=== PATIENT | male | born 1950 | race Caucasian/White ===

== ENCOUNTER 2021-08-12 09:25 | Outpatient (CLI) | payer BC, MEDICARE, SELFPAY ==
[2021-08-12 12:57] LABS: ALT 36 U/L (16-63); AST 18 U/L (15-37); Albumin 3.3 g/dL (3.4-5.0); Alkaline Phosphatase 109 U/L (46-116); Anion Gap 4.8 mmol/L (3-11); BUN 10 mg/dL (7-18); Bilirubin, Total 0.3 mg/dL (0.2-1.0); CO2 34.2 mmol/L (21.0-32.0); CREATININE 0.8 mg/dL (0.70-1.30); Calcium 8.5 mg/dL (8.5-10.1); Calculated LDL 79 mg/dL (<100); Chloride 97 mmol/L (98-107); Cholesterol 132 mg/dL (<200); Glucose 94 mg/dL (74-106); HDL Cholesterol 40 mg/dL (40-60); Potassium 4.6 mmol/L (3.5-5.1); Sodium 136 mmol/L (136-145); TSH (W/Ref FT4) 2.57 uIU/mL (0.36-3.74); Total Protein 6.8 g/dL (6.4-8.2); Triglyceride 66 mg/dL (<150)
[2021-08-12 13:15] LABS: NT-proBNP 2506 pg/mL (<300)
== END 2021-08-12 09:26 | disposition home or self-care (01) ==
LOC: LOS 09:26
PROVIDERS: PCP Family Medicine; Referring Provider Family Medicine; Visit Provider Family Medicine
DX: I10 Essential (primary) hypertension; I50.9 Heart failure, unspecified; I48.91 Unspecified atrial fibrillation
CPT/HCPCS: 36415; 80053; 80061; 83880; 84443

== ENCOUNTER 2021-09-09 03:24 | Outpatient (CLI) | payer BC, MEDICARE, SELFPAY ==
[2021-09-09 12:42] LABS: ALT 27 U/L (16-63); AST 14 U/L (15-37); Albumin 3.7 g/dL (3.4-5.0); Alkaline Phosphatase 98 U/L (46-116); Anion Gap 5.4 mmol/L (3-11); BUN 13 mg/dL (7-18); Bilirubin, Total 0.4 mg/dL (0.2-1.0); CO2 33.6 mmol/L (21.0-32.0); CREATININE 0.8 mg/dL (0.70-1.30); Calcium 8.6 mg/dL (8.5-10.1); Chloride 98 mmol/L (98-107); Glucose 144 mg/dL (74-106); NT-proBNP 1180 pg/mL (<300); Sodium 137 mmol/L (136-145); Total Protein 7.4 g/dL (6.4-8.2)
== END 2021-09-09 03:25 | disposition home or self-care (01) ==
LOC: LOS 03:24
PROVIDERS: PCP Family Medicine; Visit Provider Family Medicine
DX: I10 Essential (primary) hypertension (principal); I50.9 Heart failure, unspecified
CPT/HCPCS: 36415; 80053; 83880

== ENCOUNTER 2021-10-25 03:50 | Outpatient (CLI) | payer BC, MEDICARE, SELFPAY ==
[2021-10-25 10:27] LABS: Source Nasal/Nares
[2021-10-25 13:23] LABS: COVID-19 PCR Negative (Negative)
== END 2021-10-25 03:51 | disposition home or self-care (01) ==
LOC: LBO 03:50
PROVIDERS: PCP Family Medicine; Visit Provider Ophthalmology
DX: Z20.822 Contact with and (suspected) exposure to COVID-19 (principal); Z01.818 Encounter for other preprocedural examination
CPT/HCPCS: 87635

== ENCOUNTER 2021-10-28 07:01 | Day surgery (SDC) | payer BC, MEDICARE, SELFPAY ==
[2021-10-28 07:30] VITALS: BP 136/69; PULSE 85; RESP 20; TEMP 36.6; O2SAT 97
[2021-10-28] MEDS: Tropicam./Phenyleph. (1/2.5%) 5 ML BTL OD ×3 (07:40→07:50)
--- NOTE | 2021-10-28 08:02 | W.ANESPRE ---
General Info Date of Service Date Performed: 10/28/21 Height: 5 ft 9 in Weight: 88.451 kg Body Mass Index (BMI): 28.8 Surgical Procedure: Operation Date: 10/28/21 08:40 Proposed Procedures Side Surgeon p Cataract Extraction with IOL Implant Right Efraín Murphy MD Meds Allergies and Home Medications Allergies Allergy/AdvReac Type Severity Reaction Status Date / Time No Known Allergies Allergy Verified 10/28/21 07:26 Home Medication Medication Instructions Recorded diltiazem HCl 180 mg 180 mg PO DAILY #90 cap 08/12/21 capsule,extended release 24 hr, controlled apixaban 5 mg tablet 5 mg PO BID #180 tab 08/26/21 torsemide 20 mg tablet 40 mg PO DAILY #1 tab 08/26/21 potassium chloride 10 mEq 20 meq PO DAILY #60 tab 09/02/21 tablet,extended release multivitamin [Multiple Vitamin] 1 tab PO DAILY 10/28/21 Current Visit Medications: Current Medications Generic Name Dose Route Start Last Admin Trade Name Freq PRN Reason Stop Dose Admin Acetaminophen 1,000 mg 10/28/21 06:00 Acetaminophen 500 Mg Tab PO Q4H PRN PRN Miscellaneous Medication 0 ml 10/28/21 06:00 Prednisolone 1%, Moxifloxacin 0.5%, Nepafenac 0.1% 5ml Btl OD DIRECTED [facility] Miscellaneous Medication 0 ml 10/28/21 06:00 10/28/21 07:50 Tropicam./Phenyleph. (1/2.5%) 5 Ml Btl OD 1 drp DIRECTED JOSELINE Administration Tetracaine HCl 0 ml 10/28/21 06:00 Tetracaine 0.5% 4 Ml Btl OD DIRECTED [facility] PFSH Active Problems Active Problems: Problem Status Onset Code Health maintenance alteration Z78.9 Skin ulcer L98.499 Pleural effusion J90 Alcohol abuse F10.10 Personal history of nicotine dependence Z87.891 Stasis dermatitis I87.2 Aortic stenosis I35.0 CHF (congestive heart failure) I50.9 Atrial fibrillation I48.91 Tobacco Smoking/Tobacco Use Status: Current every day Tobacco Type: cigarettes Tobacco: How many years used: 58 Passive smoking exposure: Yes Quit Status: considering quitting Second hand exposure: Yes Alcohol Alcohol Intake: current Alcohol intake frequency: 0-2 drinks per day Alcohol type: beer Substance Use Substance use: Never Substance use type: does not use Vital Signs and Lab Results Vital Signs Most Recent Vital Signs in EMR: Most Recent Vital Signs Temp Pulse Resp BP Pulse Ox 36.6 C 85 20 136/69 97 10/28/21 07:30 10/28/21 07:30 10/28/21 07:30 10/28/21 07:30 10/28/21 07:30 Lab Results Blood Type / Crossmatch: No Data to Display Complete Blood Count: No Data to Display Complete Metabolic Panel: No Data to Display Liver Function Panel: No Data to Display Coagulation Panel: No Data to Display Cardiac Panel: No Data to Display Arterial Blood Gas: No Data to Display Venous Blood Gas: No Data to Display Pancreas Panel: No Data to Display Thyroid Panel: No Data to Display Infectious Disease: Coronavirus (COVID-19)(PCR) Negative (Negative) 10/25/21 08:48 10/25/21 Coronavirus 2019 Source Nasal/Nares 10/25/21 08:48 10/25/21 Blood Cultures: No Data to Display Toxicology Panel: No Data to Display Anesthesia Assessment and Plan Anesthesia History Personal History: No History of Anesthesia Complications Family History: No Family History of Anesthesia Complications Exercise Tolerance Exercise Tolerance: Metabolic Equivalents>4 Pertinent Negatives Pertinent Negatives: No Symptoms of GERD, No Major Cardiovascular Symptoms or Complaints, No Major Pulmonary Symptoms or Complaints and No History of CVA/TIA Cardiac & Pulmonary Exam Cardiac Exam: Normal S1/S2 Heart Sounds Pulmonary Exam: Clear Bilateral Breath Sounds Implantable Cardiac Device Does patient have a Pacemaker or an ICD?: No Airway Exam Known Difficult Airway: No Mallampati Class: 1 Mouth Opening: Normal (> 3cm) Thyromental Distance: Greater than 3 cm Neck Range of Motion: Full ROM Neck Circumference: Normal Teeth Condition: Normal Dentition ASA Classification ASA Score: ASA 2 Emergency Case?: No NPO Status NPO Status: NPO Clears >2 hours, Solids >8 hours Anesthesia Plan Resuscitation Status: Full Code Anesthesia Technique: MAC Anesthesia Airway Planned: Natural Airway Monitors Used: Standard Monitors
[2021-10-28 08:05] VITALS: BMI 28.8
[2021-10-28] MEDS: Balanced Salt Soln.-PLUS 500 ML BAG (08:24)
[2021-10-28] MEDS: Tetracaine 0.5% 4 ML BTL OD (08:24)
[2021-10-28] MEDS: Duovisc Viscoelastic System EACH 1 EACH (08:25)
[2021-10-28] MEDS: Lidocaine 2% Jelly 6 ML SYR (08:25)
[2021-10-28] MEDS: Povidone-Iodine Ophth 30 ML BTL (08:26)
[2021-10-28] MEDS: Triamcinolone 40 MG/ML VIAL (08:28)
--- NOTE | 2021-10-28 08:48 | W.ANESPOSTOP ---
Postoperative Evaluation Date, Time and Location Date Performed: 10/28/21 Time Performed: 08:49 Patient Location: Day Surgery Unit Vital Signs Most Recent Imported Vital Signs: Most Recent Vital Signs Temp Pulse Resp BP Pulse Ox 36.6 C 85 20 136/69 97 10/28/21 07:30 10/28/21 07:30 10/28/21 07:30 10/28/21 07:30 10/28/21 07:30 Most Recent Manually Entered Vital Signs: Adult Blood Pressure: 132/45 Heart Rate: 61 Respirations: 12 Oxygen Saturation (%): 97 Temperature (C): 36.3 C Pain Score (0-10 Scale): 0 Pain Score Most Recent Pain Score: Most Recent Pain Score Pain Level 0 10/28/21 07:30 Assessment Mental Status: Awake (Alert & Oriented to Patient Baseline) Airway and Respiratory Function: Patent airway with normal (patient baseline) respiratory exam Cardiovascular Function: Hemodynamically Stable Hydration Status: Adequately Hydrated Nausea & Vomiting: No Nausea or Vomiting Pain: Pt. Denies Any Pain Peripheral Nerve Block: Patient did not receive a nerve block
[2021-10-28 08:49] VITALS: BP 132/45; PULSE 80; RESP 18; TEMP 36.6; O2SAT 97
--- NOTE | 2021-10-28 08:49 | W.PM.DSUDISC ---
Discharge Plan Disposition Patient Disposition: HOME Condition: Good Discharge Details Attending Provider: Efraín Murphy Primary Care Provider: Cesario Jordan Home Meds and New Rx's Prescriptions: No Action torsemide 20 mg tablet 40 mg PO DAILY Qty: 1 RF: 0 Eliquis 5 mg tablet 5 mg PO BID Qty: 180 RF: 3 diltiazem HCl [DILT-XR] 180 mg capsule,ext.rel 24h degradable 180 mg PO DAILY Qty: 90 RF: 3 potassium chloride 10 mEq tablet extended release 20 meq PO DAILY Qty: 60 RF: 2 multivitamin [Multiple Vitamin] Tablet 1 tab PO DAILY RF: 0 Discharge Instructions Stand Alone Forms: Post-op Topical Cataract, Jose Eduardo Sanabria ([facility]) Discharge Orders Discharge Orders: Discharge Order (Routine); Ordered 10/28/21 Ordered By: Efraín Murphy DS: Diagnosis Discharge Diagnosis (1) Cortical cataract of right eye: Status: Resolved (2) Nuclear sclerotic cataract of right eye: Status: Resolved (3) Posterior subcapsular age-related cataract, right eye: Status: Resolved
[2021-10-28 08:50] VITALS: BP 132/45; PULSE 61; RESP 12; TEMPC 36.3; O2SAT 97
--- NOTE | 2021-10-28 08:53 | W.PM.OP ---
Date of service: 10/28/21 Time of Service: 08:53 Operative Note Operative Note DATE OF PROCEDURE: 10/28/21 PRE-OP DIAGNOSIS: Nuclear/cortical/posterior subcapsular cataract, right eye Epiretinal membrane, right eye POST-OP DIAGNOSIS: same PROCEDURE: Cataract extraction using phacoemulsification with intraocular lens implant, right eye SURGEON: Efraín Murphy ANESTHESIA TYPE: Local By Surgeon and MAC Refer to Anesthesia Record ESTIMATED BLOOD LOSS: 0 PATHOLOGY: none sent COMPLICATIONS: None Patient was transported to: same day Patient's condition: stable Implants: Marc & Marc/SIOBHAN Tecnis [id number] Indications: Progressive visual loss due to cataract, right eye Procedure Description: CATARACT SURGERY OPERATIVE REPORT PREOPERATIVE DIAGNOSIS: 1. Nuclear/cortical/posterior subcapsular cataract, right eye 2. Epiretinal membrane, right eye POSTOPERATIVE DIAGNOSIS: Same OPERATION: 1. Cataract extraction using phacoemulsification with posterior chamber intraocular lens implant, right eye. IOL: IOL Lead Electrical Engineer/Model: Marc & Marc / SIOBHAN Tecnis [id number] IOL Power: + 22.0 diopters IOL Serial Number: [id number] Optic Diameter: 6.0mm Haptic/Overall Diameter: 13.0mm PHACO INFO: Cricket Centurion Vision System with OZil and Active Fluidics Cumulative Dispersed Energy (CDE): 5.61 seconds SURGEON: Efraín Murphy MD, TATO ANESTHESIA: Monitored [facility] (MAC), with local sub-tenon's anesthetic infiltration COMPLICATIONS: None SPECIMENS: None INDICATIONS FOR PROCEDURE: The patient is a 71-year-old gentleman with history of diminished visual acuity in his right eye. He is noted to have a nuclear/cortical/posterior subcapsular cataract. In addition, he has an epiretinal membrane of the right eye. The option of cataract surgery was offered to the patient and he wished to proceed, understanding that postoperative visual acuity will be limited by the presence of pre-existing maculopathy. PROCEDURE: The correct surgical eye was identified and marked as the right eye and the pupil was dilated in the preoperative area using mydriatics and cycloplegics. The dilated pupil size was 6.0 mm. He elected to proceed without oral sedation. The patient was brought to the operating room where cardiopulmonary monitoring was instituted and surgical time-out was performed, confirming the correct operative eye and IOL power. Topical anesthesia was administered and ophthalmic povidone-iodine 5% was instilled into the conjunctival fornices. Lidocaine gel was applied to the cornea and the chuyita-ocular area was prepped with Betadine 10% solution and draped in the usual sterile fashion for intraocular surgery, including an aperture drape. A Tegaderm transparent film dressing was cut in half and used to cover the lashes and lid margins. Care was taken to sequester the lashes and lid margins under the Tegaderm dressing. A lid speculum was placed between the lids of the operative eye and the Yahaira-Roshan operating microscope was maneuvered into position. Juan M scissors were then used to make a conjunctival buttonhole approximately 6mm posterior to the limbus in the inferonasal quadrant. Blunt dissection was carried out to expose bare sclera, and a blunt-tipped sub-tenon?s anesthesia cannula was introduced and passed posteriorly along the globe where non-preserved plain lidocaine was injected into posterior sub-Tenon?s space. A sideport knife was used to make a paracentesis port inferotemporally. Intraocular phenylephrine/lidocaine was injected into the anterior chamber. The anterior chamber was filled with viscoelastic. A 2.4mm keratome knife was used to create a half-thickness groove at the limbus and then to construct a three-plane near-clear corneal tunnel extending 2.0mm into clear cornea superiortemporally. A flap was raised on the anterior capsule and capsulorhexis forceps were used to continue a capsulorrhexis, starting clockwise from the 10 o'clock position. While completing the capsulorrhexis at approximately the 1 o'clock position, the patient suddenly moved to his left, causing the capsulorrhexis to come back centrally. Additional viscoelastic was placed in the anterior chamber. The capsulorrhexis was continued, extending it more peripherally towards the 4 o'clock position and then completing the capsulorrhexis. The capsulorrhexis was a kidney sanchez shape, the anterior capsular rim extending centrally at the 3 o'clock position. Balanced salt solution was then used to perform cortical cleaving hydrodissection and nuclear hydrodelineation until the lens could be freely rotated within the capsular bag. The lens nucleus was then disassembled and removed within the capsular bag and iris plane using phacoemulsification. Residual cortical material was removed using the I/A handpiece. The posterior capsule was carefully polished to remove as much residual lens epithelial cells as safely possible. The capsular bag was then inflated and the anterior chamber deepened with viscoelastic. The lens implant described above was inserted into the capsular bag using the SIOBHAN [employer] Injector. A Kuglen hook was used to dial the IOL into position. Consideration was given to enlarging the capsulorrhexis, but it did not appear that the nasal portion of the anterior capsular leaflet would impinge on the visual axis through an undilated pupil. If so, laser relaxing incisions could also be made. Residual viscoelastic was then removed first from posterior to the IOL, then from the anterior chamber using the I/A handpiece. The lens implant was noted to center nicely within the capsular bag. The incisions were stromally hydrated, and the anterior chamber was reformed using BSS. Then 0.5cc of moxifloxacin 1.0mg/ml were injected into the capsular bag and anterior chamber. The incisions were checked with a Weck spear and found to be secure. At the conclusion of the procedure, Kenalog 20 mg in 0.5 cc were injected into posterior sub-tenon's space using the sub-tenon's anesthesia injection cannula. Several drops of ophthalmic povidone-iodine 5% were then applied to the eye followed by two drops of Imprimis combination prednisolone/moxifloxacin/nepafenac solution. The drapes were removed and a clear plastic protective eye shield was placed over the eye. The patient was then returned to Same Day Surgery in stable condition.
== END 2021-10-28 09:26 | disposition home or self-care (01) ==
PROVIDERS: PCP Family Medicine; Visit Provider Ophthalmology
PROC: (CPT 66984; principal; 2021-10-28 08:30)
DX: H25.041 Posterior subcapsular polar age-related cataract, right eye (principal); I50.9 Heart failure, unspecified; F17.210 Nicotine dependence, cigarettes, uncomplicated
CPT/HCPCS: 66984; V2632

== ENCOUNTER 2021-11-08 04:12 | Outpatient (CLI) | payer BC, MEDICARE, SELFPAY ==
[2021-11-08 11:57] LABS: Source Nasal/Nares
[2021-11-08 17:46] LABS: COVID-19 PCR Negative (Negative)
== END 2021-11-08 04:13 | disposition home or self-care (01) ==
PROVIDERS: PCP Family Medicine; Visit Provider Ophthalmology
DX: Z20.822 Contact with and (suspected) exposure to COVID-19 (principal)
CPT/HCPCS: 87635

== ENCOUNTER 2021-11-11 06:23 | Day surgery (SDC) | payer BC, MEDICARE, SELFPAY ==
[2021-11-11 06:31] VITALS: BP 141/69; PULSE 86; RESP 18; TEMP 36.1; O2SAT 96
[2021-11-11] MEDS: Tropicam./Phenyleph. (1/2.5%) 5 ML BTL OS ×3 (06:45→07:02)
--- NOTE | 2021-11-11 07:03 | ANES.PREOP_ITS ---
General Info Date of Service Date Performed: 11/11/21 Height: 5 ft 9 in Weight: 86.6 kg Body Mass Index (BMI): 28.2 Surgical Procedure: Operation Date: 11/11/21 07:40 Proposed Procedures Side Surgeon p Cataract Extraction with IOL Implant Left Efraín Murphy MD Meds Allergies and Home Medications Allergies Allergy/AdvReac Type Severity Reaction Status Date / Time No Known Allergies Allergy Verified 11/11/21 06:40 Home Medication Medication Instructions Recorded diltiazem HCl 180 mg 180 mg PO DAILY #90 cap 08/12/21 capsule,extended release 24 hr, controlled apixaban 5 mg tablet 5 mg PO BID #180 tab 08/26/21 torsemide 20 mg tablet 40 mg PO DAILY #1 tab 08/26/21 potassium chloride 10 mEq 20 meq PO DAILY #60 tab 09/02/21 tablet,extended release multivitamin [Multiple Vitamin] 1 tab PO DAILY 10/28/21 Current Visit Medications: Current Medications Generic Name Dose Route Start Last Admin Trade Name Freq PRN Reason Stop Dose Admin Acetaminophen 1,000 mg 11/11/21 06:00 Acetaminophen 500 Mg Tab PO Q4H PRN PRN Miscellaneous Medication 0 ml 11/11/21 06:00 Prednisolone 1%, Moxifloxacin 0.5%, Nepafenac 0.1% 5ml Btl OS DIRECTED [facility] Miscellaneous Medication 0 ml 11/11/21 06:00 11/11/21 07:02 Tropicam./Phenyleph. (1/2.5%) 5 Ml Btl OS 1 drp DIRECTED JOSELINE Administration Tetracaine HCl 0 ml 11/11/21 06:00 Tetracaine 0.5% 4 Ml Btl OS DIRECTED JOSELINE PFSH Active Problems Active Problems: Problem Status Onset Code Atrial fibrillation I48.91 CHF (congestive heart failure) I50.9 Aortic stenosis I35.0 Stasis dermatitis I87.2 Personal history of nicotine dependence Z87.891 Alcohol abuse F10.10 Pleural effusion J90 Skin ulcer L98.499 Health maintenance alteration Z78.9 Cortical cataract of right eye H26.9 Nuclear sclerotic cataract of right eye H25.11 Posterior subcapsular age-related cataract, right eye H25.041 Medical History Medical History Comments:: Smokers cough Surgical History Surgical History History of cataract surgery Tobacco Smoking/Tobacco Use Status: Current every day Tobacco Type: cigarettes Smoking cigarettes per day: 30 Tobacco: How many years used: 58 Passive smoking exposure: Yes Quit Status: considering quitting Second hand exposure: Yes Alcohol Alcohol Intake: current Alcohol intake frequency: 0-2 drinks per day Alcohol type: beer Substance Use Substance use: Never Substance use type: does not use Vital Signs and Lab Results Vital Signs Most Recent Vital Signs in EMR: Most Recent Vital Signs Temp Pulse Resp BP Pulse Ox 36.1 C L 86 18 141/69 H 96 11/11/21 06:31 11/11/21 06:31 11/11/21 06:31 11/11/21 06:31 11/11/21 06:31 Lab Results Blood Type / Crossmatch: No Data to Display Complete Blood Count: No Data to Display Complete Metabolic Panel: No Data to Display Liver Function Panel: No Data to Display Coagulation Panel: No Data to Display Cardiac Panel: No Data to Display Arterial Blood Gas: No Data to Display Venous Blood Gas: No Data to Display Pancreas Panel: No Data to Display Thyroid Panel: No Data to Display Infectious Disease: Coronavirus (COVID-19)(PCR) Negative (Negative) 11/08/21 09:49 11/08/21 Coronavirus 2019 Source Nasal/Nares 11/08/21 09:49 11/08/21 Blood Cultures: No Data to Display Toxicology Panel: No Data to Display Anesthesia Assessment and Plan Anesthesia History Personal History: No History of Anesthesia Complications Family History: No Family History of Anesthesia Complications Exercise Tolerance Exercise Tolerance: Metabolic Equivalents>4 Cardiac & Pulmonary Exam Cardiac Exam: Normal S1/S2 Heart Sounds Pulmonary Exam: Clear Bilateral Breath Sounds Implantable Cardiac Device Does patient have a Pacemaker or an ICD?: No Airway Exam Known Difficult Airway: No Mallampati Class: 1 Mouth Opening: Normal (> 3cm) Thyromental Distance: Greater than 3 cm Neck Range of Motion: Full ROM Neck Circumference: Normal Teeth Condition: Normal Dentition ASA Classification ASA Score: ASA 3 Emergency Case?: No NPO Status NPO Status: NPO Clears >2 hours, Solids >8 hours Anesthesia Plan Resuscitation Status: Full Code Anesthesia Technique: MAC Anesthesia Airway Planned: Natural Airway Monitors Used: Standard Monitors
[2021-11-11 07:13] VITALS: BMI 28.2
[2021-11-11] MEDS: Lidocaine 2% Jelly 6 ML SYR (07:32)
[2021-11-11] MEDS: Tetracaine 0.5% 4 ML BTL OS (07:38)
[2021-11-11] MEDS: Duovisc Viscoelastic System EACH 1 EACH (07:40)
[2021-11-11] MEDS: Povidone-Iodine Ophth 30 ML BTL (07:41)
[2021-11-11] MEDS: Balanced Salt Soln.-PLUS 500 ML BAG (07:41)
[2021-11-11 08:00] VITALS: BP 125/76; PULSE 74; RESP 18; TEMP 36.6; O2SAT 98
--- NOTE | 2021-11-11 08:01 | W.PM.DSUDISC ---
Discharge Plan Disposition Patient Disposition: HOME Condition: Good Discharge Details Attending Provider: Efraín Murphy Primary Care Provider: Cesario Jordan Home Meds and New Rx's Prescriptions: No Action torsemide 20 mg tablet 40 mg PO DAILY Qty: 1 RF: 0 Eliquis 5 mg tablet 5 mg PO BID Qty: 180 RF: 3 diltiazem HCl [DILT-XR] 180 mg capsule,ext.rel 24h degradable 180 mg PO DAILY Qty: 90 RF: 3 potassium chloride 10 mEq tablet extended release 20 meq PO DAILY Qty: 60 RF: 2 multivitamin [Multiple Vitamin] Tablet 1 tab PO DAILY RF: 0 Discharge Instructions Stand Alone Forms: Post-op Topical Cataract, Jose Eduardo Sanabria ([facility]) Discharge Orders Discharge Orders: Discharge Order (Routine); Ordered 11/11/21 Ordered By: Efraín Murphy DS: Diagnosis Discharge Diagnosis (1) Posterior subcapsular age-related cataract of left eye: Status: Resolved (2) Nuclear sclerotic cataract of left eye: Status: Resolved
--- NOTE | 2021-11-11 08:03 | W.PM.OP ---
Date of service: 11/11/21 Time of Service: 08:03 Operative Note Operative Note DATE OF PROCEDURE: 11/11/21 PRE-OP DIAGNOSIS: Nuclear/posterior subcapsular cataract, left eye POST-OP DIAGNOSIS: same PROCEDURE: Cataract extraction using phacoemulsification with intraocular lens implant, left eye SURGEON: Efraín Murphy ANESTHESIA TYPE: Local By Surgeon and MAC Refer to Anesthesia Record PATHOLOGY: none sent COMPLICATIONS: None Patient was transported to: same day Patient's condition: stable Implants: Marc and Marc / [employer] Tecnis [id number] Indications: Progressive decreased vision due to cataract, left eye Procedure Description: CATARACT SURGERY OPERATIVE REPORT PREOPERATIVE DIAGNOSIS: 1. Nuclear/posterior subcapsular cataract, left eye POSTOPERATIVE DIAGNOSIS: Same OPERATION: 1. Cataract extraction using phacoemulsification with posterior chamber intraocular lens implant, left eye. IOL: IOL Paper Mill Manager/Model: Marc & Marc / SIOBHAN Tecnis [id number] IOL Power: + 23.0 diopters IOL Serial Number: [id number] Optic Diameter: 6.0 mm Haptic/Overall Diameter: 13.0 mm PHACO INFO: Cricket [employer] Flame Dataurion Vision System with OZil and Active Fluidics Cumulative Dispersed Energy (CDE): 17.0 seconds SURGEON: Efraín Murphy MD, TATO ANESTHESIA: Monitored [facility] (MAC), with local sub-tenon's anesthetic infiltration COMPLICATIONS: None SPECIMENS: None INDICATIONS FOR PROCEDURE: The patient is a 71-year-old gentleman with history of diminished visual acuity in both eyes secondary to the development of significant bilateral cataracts. He has a history of epiretinal membrane in the right eye. He has already undergone cataract surgery in the right eye. He now presents for cataract surgery in the left eye. PROCEDURE: The correct surgical eye was identified and marked as the left eye and the pupil was dilated in the preoperative area using mydriatics and cycloplegics. The dilated pupil size was 7.0 mm. He elected to proceed without oral sedation. The patient was brought to the operating room where cardiopulmonary monitoring was instituted and surgical time-out was performed, confirming the correct operative eye and IOL power. Topical anesthesia was administered and ophthalmic povidone-iodine 5% was instilled into the conjunctival fornices. Lidocaine gel was applied to the cornea and the chuyita-ocular area was prepped with Betadine 10% solution and draped in the usual sterile fashion for intraocular surgery, including an aperture drape. A Tegaderm transparent film dressing was cut in half and used to cover the lashes and lid margins. Care was taken to sequester the lashes and lid margins under the Tegaderm dressing. A lid speculum was placed between the lids of the operative eye and the Yahaira-Roshan operating microscope was maneuvered into position. Juan M scissors were then used to make a conjunctival buttonhole approximately 6mm posterior to the limbus in the inferonasal quadrant. Blunt dissection was carried out to expose bare sclera, and a blunt-tipped sub-tenon?s anesthesia cannula was introduced and passed posteriorly along the globe where non-preserved plain lidocaine was injected into posterior sub-Tenon?s space. A sideport knife was used to make a paracentesis port superiorly/superiortemporally. Intraocular phenylephrine/lidocaine was injected int the anterior chamber.. The anterior chamber was filled with viscoelastic. A 2.4mm keratome knife was used to create a half-thickness groove at the limbus and then to construct a three-plane near-clear corneal tunnel extending 2.0mm into clear cornea at the 3:00 position. A flap was raised on the anterior capsule and capsulorhexis forceps were used to complete a continuous curvilinear capsulorhexis of 5.0 mm. Balanced salt solution was then used to perform cortical cleaving hydrodissection and nuclear hydrodelineation until the lens could be freely rotated within the capsular bag. The lens nucleus was then disassembled and removed within the capsular bag and iris plane using phacoemulsification. Residual cortical material was removed using the 45-degree angled silicone I/A tip with 0.3mm port. The posterior capsule was carefully polished to remove as much residual lens epithelial cells as safely possible. The capsular bag was then inflated and the anterior chamber deepened with viscoelastic. The lens implant described above was inserted into the capsular bag using the SIOBHAN [employer] [place] [employer] Injector. A Kuglen hook was used to dial the IOL into position. Residual viscoelastic was then removed first from posterior to the IOL, then from the anterior chamber using the I/A handpiece. The lens implant was noted to center nicely within the capsular bag. The incisions were stromally hydrated, and the anterior chamber was reformed using BSS. Then 0.5cc of moxifloxacin 1.0mg/ml were injected into the capsular bag and anterior chamber. The incisions were checked with a Weck spear and found to be secure. Several drops of ophthalmic povidone-iodine 5% were then applied to the eye followed by two drops of Imprimis combination prednisolone/moxifloxacin/nepafenac solution. The drapes were removed and a clear plastic protective eye shield was placed over the eye. The patient was then returned to Same Day Surgery in stable condition.
--- NOTE | 2021-11-11 08:08 | W.ANESPOSTOP ---
Postoperative Evaluation Date, Time and Location Date Performed: 11/11/21 Time Performed: 08:08 Patient Location: Day Surgery Unit Vital Signs Most Recent Imported Vital Signs: Most Recent Vital Signs Temp Pulse Resp BP Pulse Ox 36.6 C 74 18 125/76 98 11/11/21 08:00 11/11/21 08:00 11/11/21 08:00 11/11/21 08:00 11/11/21 08:00 Pain Score Most Recent Pain Score: Most Recent Pain Score Pain Level 0 11/11/21 08:00 Assessment Mental Status: Awake (Alert & Oriented to Patient Baseline) Airway and Respiratory Function: Patent airway with normal (patient baseline) respiratory exam Cardiovascular Function: Hemodynamically Stable Hydration Status: Adequately Hydrated Nausea & Vomiting: No Nausea or Vomiting Pain: Pt. Denies Any Pain Peripheral Nerve Block: Patient did not receive a nerve block
== END 2021-11-11 08:16 | disposition home or self-care (01) ==
PROVIDERS: PCP Family Medicine; Visit Provider Ophthalmology
PROC: (CPT 66984; principal; 2021-11-11 07:30)
DX: H25.042 Posterior subcapsular polar age-related cataract, left eye (principal); I48.91 Unspecified atrial fibrillation; I35.0 Nonrheumatic aortic (valve) stenosis; F17.210 Nicotine dependence, cigarettes, uncomplicated
CPT/HCPCS: 66984; V2632

== ENCOUNTER 2022-01-09 04:00 | Outpatient (CLI) | payer BC, MEDICARE, SELFPAY ==
[2022-01-09 11:52] LABS: BUN 13 mg/dL (7-18); CREATININE 0.7 mg/dL (0.70-1.30); Calcium 8.7 mg/dL (8.5-10.1); Chloride 93 mmol/L (98-107); Glucose 130 mg/dL (74-106); NT-proBNP 1242 pg/mL (<300); Potassium 4.8 mmol/L (3.5-5.1); Sodium 129 mmol/L (136-145)
== END 2022-01-09 04:01 | disposition home or self-care (01) ==
LOC: LBO 04:00
PROVIDERS: PCP Family Medicine; Visit Provider Family Medicine
DX: I48.91 Unspecified atrial fibrillation (principal); I50.9 Heart failure, unspecified
CPT/HCPCS: 36415; 80048; 83880

== ENCOUNTER 2022-02-13 03:52 | Outpatient (CLI) | payer BC, MEDICARE, SELFPAY ==
[2022-02-13 13:06] LABS: ALT 33 U/L (16-63); AST 27 U/L (15-37); Albumin 3.9 g/dL (3.4-5.0); Alkaline Phosphatase 114 U/L (46-116); Anion Gap 6.9 mmol/L (3-11); BUN 17 mg/dL (7-18); Bilirubin, Total 0.6 mg/dL (0.2-1.0); CO2 32.1 mmol/L (21.0-32.0); CREATININE 0.8 mg/dL (0.70-1.30); Calcium 8.4 mg/dL (8.5-10.1); Chloride 96 mmol/L (98-107); Glucose 118 mg/dL (74-106); NT-proBNP 1475 pg/mL (<300); Potassium 3.9 mmol/L (3.5-5.1); Sodium 135 mmol/L (136-145); Total Protein 7.8 g/dL (6.4-8.2)
== END 2022-02-13 03:53 | disposition home or self-care (01) ==
LOC: LOS 03:53
PROVIDERS: PCP Family Medicine; Visit Provider Family Medicine
DX: I10 Essential (primary) hypertension (principal); I50.9 Heart failure, unspecified; I48.91 Unspecified atrial fibrillation; R73.9 Hyperglycemia, unspecified; L98.499 Non-pressure chronic ulcer of skin of other sites with unspecified severity
CPT/HCPCS: 36415; 80053; 83036; 83880

== ENCOUNTER 2022-05-26 02:45 | Outpatient (CLI) | payer BC, MEDICARE, SELFPAY ==
[2022-05-26 12:48] LABS: Anion Gap 9.7 mmol/L (3-11); BUN 19 mg/dL (7-18); CO2 32.3 mmol/L (21.0-32.0); CREATININE 0.8 mg/dL (0.70-1.30); Calcium 8.9 mg/dL (8.5-10.1); Chloride 96 mmol/L (98-107); Glucose 156 mg/dL (74-106); Potassium 3.5 mmol/L (3.5-5.1); Sodium 138 mmol/L (136-145)
== END 2022-05-26 02:46 | disposition home or self-care (01) ==
LOC: LOS 02:46
PROVIDERS: Family Medicine; PCP Family Medicine; Visit Provider Family Medicine
DX: E87.1 Hypo-osmolality and hyponatremia (principal); I50.9 Heart failure, unspecified
CPT/HCPCS: 36415; 80048